=== PATIENT | male | born 1955 | race Caucasian/White ===

== ENCOUNTER 2019-09-25 02:11 | Emergency (ER) | payer MEDICARE, OTHER ==
[~2019-09-25] VITALS: Ht 172.7 cm; Wt 72.6 kg
[~2019-09-25 02:11] MED LIST: CEPHALEXIN500 MG ORAL; VIBRAMYCIN100 MG ORAL
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
[2019-09-25] MEDS ORDERED: CEPHALEXIN500 MG ORAL (03:30)
[2019-09-25 03:35] VITALS: BP 146/88
[2019-09-25 05:00] VITALS: BP 146/88
== END 2019-09-25 05:00 | disposition home or self-care (01) ==
LOC: EDBD 02:11 → EMR 02:24
DX: S01.81XA Laceration without foreign body of other part of head, initial encounter (principal); S09.90XA Unspecified injury of head, initial encounter; S00.81XA Abrasion of other part of head, initial encounter; Y00.XXXA Assault by blunt object, initial encounter; Y92.9 Unspecified place or not applicable; Z88.2 Allergy status to sulfonamides; Z59.0 Homelessness
CPT/HCPCS: 70450; 99284

== ENCOUNTER 2019-09-25 06:13 | Emergency (ER) | payer MEDICARE, OTHER ==
[~2019-09-25] VITALS: Ht 167.6 cm; Wt 68.0 kg
[2019-09-25 06:20] VITALS: BP 154/84
[2019-09-25 07:17] LABS: BASOPHILS % (AUTO) 0.9 % (0.0-2.0); EOSINOPHILS % (AUTO) 0.4 % (0.0-3.0); HEMATOCRIT 43.7 % (42.0-52.0); HEMOGLOBIN 14.3 G/DL (14.2-18.0); LYMPHOCYTES % (AUTO) 14.5 % (20.0-45.0); MEAN CORPUSCULAR VOLUME 100 FL (80-99); MONOCYTES % (AUTO) 10.6 % (1.0-10.0); NEUTROPHILS % (AUTO) 73.5 % (45.0-75.0); PLATELET COUNT 204 K/UL (150-450); RED BLOOD COUNT 4.39 M/UL (4.70-6.10); RED CELL DISTRIBUTION WIDTH 12.1 % (11.6-14.8); WHITE BLOOD COUNT 10.5 K/UL (4.8-10.8)
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
[2019-09-25 07:26] LABS: ANION GAP 11 mmol/L (5-15); BLOOD UREA NITROGEN 32 mg/dL (7-18); CALCIUM 9.5 MG/DL (8.5-10.1); CARBON DIOXIDE 28 MMOL/L (21-32); CHLORIDE 104 MMOL/L (98-107); CREATININE 1.4 MG/DL (0.55-1.30); POTASSIUM 3.4 MMOL/L (3.5-5.1); SODIUM 142 MMOL/L (136-145)
[2019-09-25 07:29] LABS: INR 1.1 (0.9-1.1)
[2019-09-25 07:37] LABS: ALANINE AMINOTRANSFERASE 65 U/L (12-78); ALBUMIN 4.2 G/DL (3.4-5.0); ALKALINE PHOSPHATASE 84 U/L (46-116); ASPARTATE AMINO TRANSFERASE 45 U/L (15-37); BILIRUBIN,TOTAL 1.2 MG/DL (0.2-1.0)
[2019-09-25 07:40] LABS: BILIRUBIN,DIRECT 0.3 MG/DL (0.0-0.3)
[2019-09-25 09:19] VITALS: BP 142/82
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
[2019-09-25 10:30] VITALS: BP 139/80
== END 2019-09-25 10:30 | disposition home or self-care (01) ==
LOC: EDBD 06:13 → EMR 06:50
DX: F15.10 Other stimulant abuse, uncomplicated (principal); S02.40EA Zygomatic fracture, right side, initial encounter for closed fracture; S02.2XXA Fracture of nasal bones, initial encounter for closed fracture; S02.40DA Maxillary fracture, left side, initial encounter for closed fracture; X58.XXXA Exposure to other specified factors, initial encounter; Y92.9 Unspecified place or not applicable; J44.9 Chronic obstructive pulmonary disease, unspecified; Z86.19 Personal history of other infectious and parasitic diseases; Z88.2 Allergy status to sulfonamides; Z59.0 Homelessness; S40.812A Abrasion of left upper arm, initial encounter; S40.811A Abrasion of right upper arm, initial encounter; S60.512A Abrasion of left hand, initial encounter; S60.511A Abrasion of right hand, initial encounter; S50.812A Abrasion of left forearm, initial encounter; S50.811A Abrasion of right forearm, initial encounter; S01.81XA Laceration without foreign body of other part of head, initial encounter
CPT/HCPCS: 36415; 70450; 70486; 80053; 82248; 85025; 85610; 85730; 99284; G0480

== ENCOUNTER 2019-09-30 20:35 | Emergency (ER) | payer MEDICARE, OTHER ==
[~2019-09-30] VITALS: Ht 172.7 cm; Wt 59.0 kg
[2019-09-30 20:26] VITALS: BP 132/78
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
[2019-09-30] MEDS ORDERED: LIDODERM700 M1 TOPIC (20:49)
[2019-09-30] MEDS ORDERED: IBUPROFEN600 M1 ORAL (20:49)
--- NOTE | 2019-09-30 20:52 | NUR ---
ED Nurse Note: Pt refused medication. EXplained risk, verbally understood. ERMD notified.
[2019-09-30 21:00] VITALS: BP 121/69
--- NOTE | 2019-09-30 21:00 | NUR ---
ED Nurse Note: Pt cleared by ERMD for discharge. DC instructions/prescription was given and explained to pt and verbalized understanding of teachings. All medical deviecs such as ID band removed. Pt is AAO x4, ambulatory and left with all personal belongings. Pt provided with food.
--- NOTE | 2019-09-30 21:40 | Emergency Room Report ---
History of Present Illness General Chief Complaint: Back Pain-No Injury Source: Patient, EMS Present Illness HPI Disclaimer: Please note that this report is being documented using DRAGON technology. This can lead to erroneous entry secondary to incorrect interpretation by the dictating instrument. HPI: Male with history of degenerative disc disease and sciatica presents for evaluation of back pain. States pain is been going on for 30 years. Denies any new fall or injury. He reports pain over the right buttock rating down the mid thigh. Denies numbness or tingling or weakness. Able to ambulate at his baseline. States he is scheduled to follow-up with his doctor for surgery later this year. Allergies: Coded Allergies: SULFA (SULFONAMIDE ANTIBIOTICS) (Verified Allergy, Unknown, 10/19/18) Uncoded Allergies: SULFA (Allergy, Unknown, 09/30/19) COVID-19 Screening Contact w/high risk pt: No Experienced COVID-19 symptoms?: No COVID-19 Testing performed REMELT OPERATOR: No Review of Systems All Other Systems: negative except mentioned in HPI Physical Exam Vital Signs Date Time Temp Pulse Resp B/P (MAP) Pulse Ox O2 Delivery O2 Flow Rate FiO2 09/30/19 20:25 98.8 99 09/30/19 20:25 19 132/78 (96) 99 Room Air General: Awake and alert, no acute distress HEENT: NC/AT. EOMI. Resp: Normal work of breathing Skin: Intact. No abrasions, laceration or rash over the exposed skin MSK: Normal tone and bulk. Moving all extremities. No obvious deformity. No tenderness to palpation of the midline in thelumbosacral spine. No significant paraspinal tenderness. There is an area just below the right iliac crest that is tender to palpation. Ambulating without difficulty. Neuro: Awake and alert. Mentating appropriately Medical Decision Making Diagnostic Impression: Primary Impression: Sciatica ER Course This is 63-year-old male presenting for evaluation of right-sided back pain without injury. This appears to be a chronic condition for the patient states is been ongoing for over 30 years. Consistent with sciatica or possible muscle spasm. No evidence of cauda equina, spinal epidural abscess, acute fracture. Do not believe he requires emergent labs or imaging. Had ordered NSAIDs and lidocaine patch for the patient however he refused. He was requesting Vicodin. He was also asking for a place to stay as he is homeless. He was provided with food but when told he could not spend the night here he left the emergency department. Prescriptions for NSAIDs and lidocaine patches were provided in his discharge paperwork. Last Vital Signs Date Time Temp Pulse Resp B/P (MAP) Pulse Ox O2 Delivery O2 Flow Rate FiO2 09/30/19 21:00 98.8 82 21 121/69 99 Room Air Disposition: HOME, SELF-CARE Condition: Stable Scripts Lidocaine Patch* (Lidoderm Patch*) 1 Each Adh..patch 1 PATCH TOPIC DAILY, #7 PATCH 0 Refills Patch(es) may remain in place for up to 12 hours in any 24-hour period. Prov: Triston Barker MD 09/30/19 Ibuprofen* (MOTRIN*) 600 Mg Tablet 600 MG ORAL Q8H PRN for FOR PAIN, #30 TAB 0 Refills Prov: Triston Barker MD 09/30/19 Referrals: NOT CHOSEN IPA/,REFERRING (PCP) [facility] Jasmyn Pena Comp. [facility] Open 24 hour /7 days a week by Appointment Only [address] [facility] [address] [facility] Patient Instructions: Sciatica, Back Pain, Adult Additional Instructions: Please follow-up with your primary care doctor in the next 1 to 3 days to discuss this emergency department visit and for reevaluation. If you have any new or worsening symptoms please return to the emergency department for reevaluation. Please note that this report is being documented using Accumulate technology. This can lead to erroneous entry secondary to incorrect interpretation by the dictating instrument. Triston Barker MD Sep 30, 2019 21:40
== END 2019-09-30 21:00 | disposition home or self-care (01) ==
LOC: EDBD 20:35 → EMR 21:00
DX: M54.30 Sciatica, unspecified side (principal); Z88.2 Allergy status to sulfonamides; Z59.0 Homelessness
CPT/HCPCS: 99282